=== PATIENT | female | born 1965 | race Caucasian/White ===

== ENCOUNTER 2022-07-29 07:04 | Outpatient (CLI) | payer BC, SELFPAY | END 2022-07-29 07:05 | disposition home or self-care (01) | PROVIDERS: PCP Family Medicine; Visit Provider Surgery | DX: Z12.11 Encounter for screening for malignant neoplasm of colon (principal); K62.1 Rectal polyp; K57.30 Diverticulosis of large intestine without perforation or abscess without bleeding; Z86.010 Personal history of colon polyps | CPT/HCPCS: 45385; 88305; 99153; J2250; J3010 ==

== ENCOUNTER 2022-08-23 07:19 | Outpatient (CLI) | payer BC, SELFPAY ==
[2022-08-23 10:10] LABS: Albumin* 4.2 g/dL (3.3-5.0)
[2022-08-23 10:11] LABS: Chloride* 107 mmol/L (96-114); Sodium* 140 mmol/L (135-149)
[2022-08-23 10:12] LABS: Potassium* 4.3 mmol/L (3.6-5.1)
[2022-08-23 10:13] LABS: Bilirubin Total* 0.5 mg/dL (0.1-1.5); Carbon Dioxide* 25 mmol/L (20-32); Cholesterol* 229 mg/dL (90-199); Creatinine* 0.6 mg/dL (0.5-1.5); Estimated Glomerular Filt Rate 105 ml/min
[2022-08-23 10:14] LABS: Alanine Aminotransferase* 55 U/L (4-35); Alkaline Phosphatase* 116 U/L (40-150); Aspartate Amino Transferase* 42 U/L (12-35); Blood Urea Nitrogen* 24 mg/dL (7-30); Calcium* 9.1 mg/dL (8.4-10.6); Glucose* 74 mg/dL (60-115); Total Protein* 7.5 g/dL (6.0-8.3); Triglycerides* 210 mg/dL (40-149)
[2022-08-23 10:15] LABS: HDL Cholesterol* 71 mg/dL (>=50); LDL Cholesterol Calculated 116 mg/dL (<100)
== END 2022-08-23 07:20 | disposition home or self-care (01) ==
LOC: NFLDREF 07:19
PROVIDERS: PCP Family Medicine; Visit Provider Family Medicine
DX: E66.9 Obesity, unspecified (principal); E78.5 Hyperlipidemia, unspecified; R53.83 Other fatigue
CPT/HCPCS: 80053; 80061

== ENCOUNTER 2023-09-25 13:27 | Outpatient (CLI) | payer OTHER, SELFPAY | END 2023-09-25 13:28 | disposition home or self-care (01) | PROVIDERS: PCP Family Medicine; Visit Provider Nurse Practitioner Family | DX: Z00.00 Encounter for general adult medical examination without abnormal findings (principal); R53.83 Other fatigue; R79.89 Other specified abnormal findings of blood chemistry; E78.5 Hyperlipidemia, unspecified; Z79.1 Long term (current) use of non-steroidal anti-inflammatories (NSAID); Z13.6 Encounter for screening for cardiovascular disorders | CPT/HCPCS: 80053; 80061 ==

== ENCOUNTER 2023-12-23 14:52 | Outpatient (CLI) | payer OTHER, SELFPAY ==
--- OUTSIDE RECORDS SUMMARY | 2023-12-23 14:54 | XMS_ITS | Clinical Summary ---
Author Organization [facility] Address [address] [address] Phone Care Team Providers Care Wrecking Mechanic Name Role Phone Unavailable Primary Care Provider Unavailabl e Allergies Active Allergy Reactions Criticality Noted Date Comments Cymbalta Nausea Only,Dizziness 03/16/2009 Severe Nausea Ibuprofen Other 03/16/2009 ulcers Morphine Sulfate 02/15/2003 Vomiting and shaking Nsaids 10/02/2000 She is able to use Aleve Sulfacetamide Sodium RASH 07/18/2006 Unclear Patient Report 06/16/2003 Certain antihistamines make her heart race. Vioxx Other 03/16/2009 Causes ulcers Medications Medication Sig Dispensed Refills Start Date End Date Status acetaminophen (TYLENOL) 500 MG tablet Acetaminophen should be limited to 4000 mg per day. As needed. 10/27/2012 Active famotidine (PEPCID) 20 MG tabletIndications: GERD (gastroesophageal reflux disease) Take 2 Tabs by mouth one time a day. 180 Tab 3 02/16/2013 Active Naproxen Sodium (ALEVE) 220 MG CAPS Take 220 mg by mouth as needed for Pain. Active lidocaine (LIDODERM) 5 % patchIndications:H ip pain, bilateral Place 1 Patch onto the skin every 24 hours. Remove patch(es) after 12 hours. 30 Patch 5 11/02/2013 Active Conj Estrogens-Bazedoxi fene (DUAVEE) 0.45-20 MG TABS Take by mouth one time a day. 01/11/2014 Active traZODone (DESYREL) 50 MG tabletIndications: Insomnia, unspecified Take 1 Tab by mouth at bedtime. 90 Tab 3 02/01/2014 Active metoclopramide (REGLAN) 10 MG tablet Take 1 tablet by mouth every eight hours as needed. 30 tablet 02/21/2014 Active clonazePAM (KLONOPIN) 0.5 MG tabletIndications: Anxiety,Insomnia, unspecified take 1 tablet by mouth every other night at bedtime 15 Tab 0 04/04/2014 Active lansoprazole (PREVACID) 30 MG delayed-release capusle Take 1 Cap by mouth one time a day. Administer before meals. Do not crush. 90 Cap 3 04/08/2014 Active hydroxychloroquine (PLAQUENIL) 200 MG tablet 2 tablets at bedtime. Take with food. 60 Tab 6 04/27/2014 Active predniSONE (DELTASONE) 10 MG tablet Take 4 tabs on day one, 3 tabs day 2, 2 tabs on day 3 and 1 tab on day 4.Take with food. 10 Tab 0 04/27/2014 Active Active Problems Problem Noted Date Diagnosed Date Ganglion cyst 12/28/2013 Anxiety 11/02/2013 Insomnia, unspecified 11/02/2013 Overview: Updated per 03/30/17 IMO import Hip pain, bilateral 11/02/2013 Benzodiazepine contract exists 11/02/2013 Overview: Contract signed 11/02/13. GERD (gastroesophageal reflux disease) 3 Gluteal tendinitis of left > right buttock 10/27 Fibromyalgia 09/23/2012 Leg cramps 03/16/2009 Family history of rheumatoid arthritis 9 Myalgia and myositis, unspecified 08/02/2008 Overview: IMO Update 04/09 Resolved Problems Problem Noted Date Diagnosed Date Resolved Date Femoral acetabular impingement - left 10/20/2012 10/27/2012 Encounter for long-term (cur rent) use of other medications - Agreement for Stimulant Medication Treatment - 10/15/2012 10/15/2012 11/02/2013 Overview: Agreement for Stimulant Medication Treatment Immunizations Name Administration Dates Next Due Tdap (7 years and older) 11/10/2012 Surgical History Surgery Date Site/Laterality Comments REPAIR INCISIONAL HERNIA,REDUCIBLE 07/18/2003 Right. [facility] APPENDECTOMY 04/17/2000 [facility] LIGATE FALLOPIAN TUBE 1992 LAP,DIAGNOSTIC ABDOMEN x 3 TOTAL ABDOM HYSTERECTOMY REMOVAL OF OVARIAN CYST(S) 1995 REPAIR INCISIONAL HERNIA,REDUCIBLE 02/17/2003 With mesh COLONOSCOPY 06/27/08 BREAST LUMPECTOMY Lt. Benign BREAST BIOPSY left benign COLONOSCOPY 06/07/2013 [facility] Dr Cerrato-- Medical History Medical History Date Comments Incisional hernia 07/18/2006 Right, small Abdominal pain, right lower quadrant 07/18/2006 Back spasm 06/16/2003 Recurrent. Abd x -rays Ruptured, appendix 02/04/2003 Adverse drug effect 02/04/[address] g ave her a lot of nausea. Ovarian cyst 02/15/2003 [facility] Back strain 05/25/2002 Chronic myofasci al back strain with spasm. Knee pain 12/29/2001 Right. Possible meniscal injury. X-rays done. Peritoneal abscess (HCC) 10/02/2000 Seconda ry to ruptured appendix, back in March 2000. Strain of lumbar region 10/02/2000 With rad icular symptoms. Flare of original injury. Work Comp. L-spine MRI 11/03/00. X-rays 10/02/00. Breast mass Fibrocystic breast Encounter for long-term (cur rent) use of other medications 10/15/2012 Agreement for Stimulant Medication Treatment Family History Medical History Relation Comments Kidney Disease Brother 3 Kidney failure Liver Disease Brother 4 Cirrhosis Addiction Father Functional alcoh olic Cancer Mother Hx of lung cance r Cardiovascular Disease Mother CAD Diabetes Mother Breast Cancer Negative Family Hx Relation Status Comments Brother 1 Liver and kidney failure secondary to alcoholism. Brother 2 Liver and kidney failure secondary to alcoholism. Brother 3 Brother 4 Father Mother Social History Tobacco Use Types Packs/Day Years Used Date Smoking Tobacco: Every Day Cigarettes 1 30 Smokeless Tobacco: Never Tobacco Cessation:Ready to Q uit: No Alcohol Use Standard Drinks/Week Comments Yes 0 (1 standard drink = 0.6 oz pur e alcohol) Occasional Sex and Gender Information Value Date Recorded Sex Assigned at Not on file Gender Identity Not on file Sexual Orientation Not on file Obstetrics History Last Filed Vital Signs Vital Sign Reading Time Taken Comments Blood Pressure 102/60 04/08/2014 2:47 PM CDT Pulse 62 04/08/2014 2:47 PM CDT Temperature 36.5 ??C (97.7 ??F) 04/08/2014 2:47 PM CD T Respiratory Rate 16 03/15/2014 8:58 AM CDT Oxygen Saturation 97% 03/15/2014 8:58 AM CDT Inhaled Oxygen Concentration - - Weight 65.5 kg (144 lb 4.8 oz) 04/08/2014 8:30 A M CDT Height 157.5 cm (5' 2) 03/15/2014 7:08 AM CDT Body Mass Index 26.39 03/15/2014 7:08 AM CDT Plan of Treatment Health Maintenance Due Date Last Done Comments CT Colonography 1965 Cervical Cancer Screening 1965 Cologuard 1965 FIT/FOBT 1965 Last pap w/ HPV Testing 1965 Last pap w/o HPV Testing 1965 Sigmoidoscopy 1965 Pneumococcal/PCV20 Vaccine: Pediatrics (2-5 yrs) and At-Risk Patients (6-64 yrs) (Standing Order) (1 of 2 - PCV) 1971 Hepatitis B Vaccine (Standin g Order) (1 of 3 - 19+ 3-dose series) 1984 MAMMO,SCREEN 06/08/2014 06/08/2013, 04/12/2011, 02/06/2010 Shingrix (Zoster recombinant ) vaccine (Standing Order) (1 of 2) 2015 TETANUS (Standing Order) 11/10/2022 11/10/2012 COVID-19 Vaccine ( - 2022-2 4 season) 2023 Influenza Vaccine Seasonal (Standing Order) (#1) 2023 Colonoscopy 06/07/2023 06/07/2013, 06/27/2008 Colorectal Cancer Screening 06/07/2023 PERTUSSIS (Standing Order) Completed 11/10/2012 HPV Vaccine (Standing Order) Aged Out No longer eligible based on patient's age to complete this topic Procedures Procedure Name Priority Date/Time Associated Diagnosis Comments MAMM DIGITAL SCREENING Routine 06/08/2013 1:48 PM PLANNING ASSISTANT Other sign and symptom in breast COLONOSCOPY Routine 06/07/2013 from Last 3 Months or Most Recently Relevant to Health Maintenance Results * MAMM DIGITAL SCREENING (06/08/2013 1:48 PM PLANNING ASSISTANT) Anatomical Region Laterality Modality Breast Bilateral Mammography 06/08/2013 1:33 PM PLANNING ASSISTANT Impressions 06/15/2013 8:49 AM PLANNING ASSISTANT ??Yearly mammography. BI-RADS 2: ??Benign findings Dictated: MD Johann Vences 16:10 Transcribed by: Rachel Denny 17:30 Narrative 06/15/2013 8:49 AM PLANNING ASSISTANT This document is currently in Final Status Exam MAMM DIGITAL SCREENING HISTORY: Screen. COMPARISON: Multiple priors. Computer Aided Detection System was utilized prior to interpretation. BREAST DENSITY: ??The breast tissue is heterogeneously dense. FINDINGS: ??Postsurgical changes related to benign left breast biopsy. Partial resolution of left breast architectural distortion. Scattered bilateral microcalcifications. ??Parenchymal pattern is denser on the right than the left. IMPRESSION: No suspicious findings. RECOMMENDATION: Yearly mammography. BI-RADS 2: ??Benign findings. ?? mkr Dictated: MD Johann Vences 16:10 Transcribed by: Rachel Denny 09:22 Signed: MD Johann Vences 08:40 Procedure Note Johann Vences MD - 06/15/2013 This document is currently in Final Status Exam MAMM DIGITAL SCREENING HISTORY: Screen. COMPARISON: Multiple priors. Computer Aided Detection System was utilized prior to interpretation. BREAST DENSITY: The breast tissue is heterogeneously dense. FINDINGS: Postsurgical changes related to benign left breast biopsy.Partial resolution of left breast architectural distortion. Scatteredbilateral microcalcifications. Parenchymal pattern is denser on the rightthan the left. IMPRESSION: No suspicious findings. RECOMMENDATION: Yearly mammography. BI-RADS 2: Benign findings. mkr Dictated: MD Johann Vences 16:10 Transcribed by: Rachel Denny 09:22 Signed: MD Johann Vences 08:40 IMPRESSION: Yearly mammography. BI-RADS 2: Benign findings Dictated: MD Johann Vences 16:10 Transcribed by: Rachel Denny 17:30 Nato Cerrato MD [facility] MAMMOGRAPHY ORDER MINE * COLONOSCOPY (06/07/2013) aNto Cerrato MD [facility] PROCEDURES from Last 3 Months or Most Recently Relevant to Health Maintenance [facility] 1965 [address] [address] [facility] 1965 [address] [place] [address]
--- OUTSIDE RECORDS SUMMARY | 2023-12-23 14:54 | XMS_ITS | Encounter Summary ---
Author Organization [facility] Address [address] [address] Phone Care Team Providers Care Windows Server Architect Name Role Phone Sonal Wood APRN, CNP Primary Care Provider Reason for Referral * Pain Center (Routine) - Exempt Specialty Diagnoses / Procedures Referred By Chey noland Referred To Contact Pain Management Diagnoses Chronic pain Tarun Germain MD [address] [place] [address] Referral ID Status Reason Start Date Expiration Date Visits Re quested Visits Authorized [id number] Exempt 02/08/2014 1 1 Question Answer Service Requested? Chronic Pain Services Comments Reason for Referral (If referral for Chronic Pain Consult Only - What question do you need answered? What help do you expect?): Chronic Pain/Fibromyalga Encounter Details Date Type Department Care Team (Late st Contact Info) Description 02/08/2014 Orders Only [facility] [address] [place] [address] Myrna Mcmanus Chronic pain (Primary Dx) Social History Tobacco Use Types Packs/Day Years Used Date Smoking Tobacco: Every Day Cigarettes 1 30 Smokeless Tobacco: Never Alcohol Use Standard Drinks/Week Comments Yes 0 (1 standard drink = 0.6 oz pur e alcohol) Occasional Sex and Gender Information Value Date Recorded Sex Assigned at Not on file Gender Identity Not on file Sexual Orientation Not on file documented as of this encounter Plan of Treatment Not on file documented as of this encounter Visit Diagnoses Diagnosis Chronic pain- Primary documented in this encounter Orders REFERRAL Count Last Ordered Date First Orde red Date APPT WITH PAIN CENTER 1 02/08/2014 documented in this encounter Care Teams Windows Server Architect Relationship Specialty Start Date End Date Sonal Wood, ELEVATOR STARTER, DIRECTOR OF OCCUPATIONAL THERAPY PCP - General Family Medicine 02/16/13 05/10/14 documented as of this encounter
--- OUTSIDE RECORDS SUMMARY | 2023-12-23 14:54 | XMS_ITS | Clinical Summary ---
Author Organization [facility] Address [place], [place] [address] Care Team Providers Care Anesthesiologist Physician Name Role Phone Tori Mehta MD Primary Care Provider + Allergies Active Allergy Reactions Criticality Noted Date Comments Morphine Vomiting 11/04/2017 Sulfa (Sulfonamide Antibiotics) Rash 01/2018 Medications Medication Sig Dispensed Refills Start Date End Date Status cyclobenzaprine (FLEXERIL) 10 mg tablet 09/03/2017 Active famotidine (PEPCID) 20 mg tablet Daily Active diclofenac 1 % topical (VOLTAREN) gel Apply to affected areas up to four times daily as needed. 04/05/2016 Active Encounters Date Type Department Care Team Description 09/25/2023 Lab Requisition [facility] [phone] Keyana Jules NP from Last 3 Months Social History Tobacco Use Types Packs/Day Years Used Date Smoking Tobacco: Never Smokeless Tobacco: Never Sex and Gender Information Value Date Recorded Sex Assigned at Not on file Gender Identity Not on file Sexual Orientation Not on file Obstetrics History Last Filed Vital Signs Vital Sign Reading Time Taken Comments Blood Pressure 103/70 11/04/2017 4:11 PM CDT Pulse 69 11/04/2017 4:11 PM CDT Temperature - - Respiratory Rate - - Oxygen Saturation 100% 11/04/2017 4:11 PM CDT Inhaled Oxygen Concentration - - Weight - - Height - - Body Mass Index - - Plan of Treatment Upcoming Encounters Date Type Department Care Team (Late st Contact Info) Description 01/21/2024 2:40 PM CDT Office Visit [facility] [address] [place] [address] Kaleb Carlos MD [address] [place] [address] Health Maintenance Due Date Last Done Comments Tdap 1976 Depression screening for age 12+ 1977 HIV for age 15-65 1980 BMI (ht and wt on same day) for age 18+ 1983 Hepatitis C screening for ag e 18-79 1983 Tetanus booster 1985 Colonoscopy through age 75 2010 Lipids for age 45-75 2010 Mammogram for age 45-75 2010 Zoster (shingles) series for age 50+ (1 of 2) 2015 COVID-19 vaccine series ( season) 2023 Influenza for age 50-64 02/29/2024 Pap test for age 21-65 09/24/2026 , 09/25/2023 Pneumococcal series for age 6-64 Aged Out No longer eligible b ased on patient's age to complete this topic Procedures Procedure Name Priority Date/Time Associated Diagnosis Comments LAB TRACKING EVENT Routine 09/25/2023 1: 35 PM CDT SEASONAL TAX PREPARER THIN PREP PAP SCREEN IMAGED Routine 09/25/2023 1:35 PM CDT HPV THIN PREP Routine 09/25/2023 1:35 PM CDT from Last 3 Months Results * LAB TRACKING EVENT (09/25/2023 1:35 PM CDT) Other (Other) Client Collect / Unknown 09/25/2023 1:35 PM CDT 09/25/2023 3:34 PM CDT Keyana Siddiqui AIRPORT SCREENER LAB BILL ONLY [facility] [address] [place] [address], * SEASONAL TAX PREPARER THIN PREP PAP SCREEN IMAGED (09/25/2023 1:35 PM CDT) Case Report Gynecologic Cytology Report ? Case: [id number] ? Authorizing Provider: ??Keyana Jules, AIRPORT SCREENER ?? Collected: ? 09/25/2023 1335 ? Ordering Location: ? [facility] ?Received: ?09/26/2023 1034 ? First Screen: ?Radha Vigil ? Rescreen: ?Tao Gardner ? Specimen: ?SEASONAL TAX PREPARER ThinPrep Vial Screening, Cervical/Vaginal ? 10/06/2023 9:45 AM CDT [facility] INTERPRETATION/ RESULT NEGATIVE FOR INTRAEPITHELIAL LESION OR MALIGNANCY (NIL) (none) 10/06/2023 9:45 AM T [facility]AL LABORATORY IMEN ADEQUACY Satisfactory for evaluation No endocervical component seen 10/06/2023 9:45 AM CDT [facility]AL LABORATORY HPV REQUEST HPV and PAP 10/06/2023 9:45 AM CDT [facility] Last Pap Result NIL 9:45 AM CDT [facility] Abnormal Pap or [place] Bx in last 5 years No 10/06/2023 9:45 AM CDT [facility] Menstrual Status Postmenopausal 10/06/2023 9:45 AM CDT [facility] [place] Bx Done Today No 10/06/2023 9:45 AM CDT [facility] Additional Information 10/06/2023 9:45 AM CDT [facility] Comment: Interpreted at [facility] [employer] [facility] - [address] [place] [id number] Automated Review Successful 10/06/2023 9:45 AM CDT [facility] Comment:Specimen processed s uccessfully by automated shipping and receiving associate device, ThinPrep Imaging System, [employer] ANCILLARY TESTING SEASONAL TAX PREPARER HPV Ordered, Please see separate report 10/06/2023 9:45 AM CDT [facility] Note The pap test is a screening technique, not a diagnostic procedure. It is used primarily to screen for squamous cancers and precursor lesions. Published studies have shown that it is subject to both false negative and false positive results. The pap test should not be used as the sole means to diagnose or exclude pre-malignant and malignant lesions. 10/06/2023 9:45 AM CDT [facility] Other (Cervical/Vagina l) 09/25/2023 1:35 PM CDT 09/26/2023 10:34 AM CDT Keyana Siddiqui NP PATHOLOGY/CYTOLOG Y [facility] [address] [place] [address], * HPV HIGH RISK (09/25/2023 1:35 PM CDT) TYPE 16 Negative Negative 09/29/2023 5:12 PM CDT [facility] LABORAT[facility] TYPE 18 Negative Negative 09/29/2023 5:12 PM CDT [facility] TR[facility] LAB[facility] OTHER HIGH RISK TYPES Negative Negative 09/29/2023 5:12 PM CDT [facility] Other (Cervical/Vagina l) 09/25/2023 1:35 PM CDT 09/26/2023 10:34 AM CDT Narrative [facility] - 09/29/2023 5:12 PM CDT HPV types 16, 18, 31, 33, 35, 39, 45, 51, 52, 56, 58, 59, 66 and 68 DNA were undetectable or below the pre-set threshold. Methodology: Christina Randy 4800 HPV Test Keyana Siddiqui AIRPORT SCREENER MICROBIOLOGY [facility] [address] [place] [address], from Last 3 Months Care Teams Anesthesiologist Physician Relationship Specialty Start Date End Date Tori Mehta MD [address] [place] [address] PCP - General Family Practice 10/09/17
--- OUTSIDE RECORDS SUMMARY | 2023-12-23 14:54 | XMS_ITS | Clinical Summary ---
Author Organization [facility] Address [address] [address] Care Team Providers Care Cereal Supervisor Name Role Phone Tori Mehta MD Primary Care Provider Source Comments You are receiving this document as you are listed as the primary care provider,follow-up provider, or the patient has been referred to you for consultation.This is in compliance with the Medicare andSum[facility] Health [facility] Campuscaid EHR Incentive Program,which states Providers who transition their patient to another setting of careor provider of care or refers their patient to another provider of care shouldprovide summary care record for each transition of care or referral. [email or web address] St. Vincent Physicians Medical CenterSnatch that Jerky Allergies Active Allergy Reactions Criticality Noted Date Comments Bupropion Unknown High 08/11/2020 Citalopram Unknown High 08/11/2020 Gabapentin Gastrointestinal Low 08/11/2020 Morphine Gastrointestinal 11/04/2017 Nickel Unknown Low 08/11/2020 Paroxetine Unknown High 08/11/2020 Sulfa Antibiotics Rash High 08/11/2020 Medications Medication Sig Dispensed Refills Start Date End Date Status lidocaine-prilocaine (EMLA) 2.5-2.5 % cream Apply to affected areas up to four times daily as needed. 30 g 3 04/05/2016 Active diclofenac (VOLTAREN) 1 % gel Apply to affected areas up to four times daily as needed. 100 g 3 04/05/2016 Active cyclobenzaprine (FLEXERIL) 10 MG tablet Take 10 mg by mouth two times daily as needed. 01/31/2021 Active famotidine (PEPCID) 20 MG tablet Take 20 mg by mouth two times a day. Active Active Problems Problem Noted Date Diagnosed Date Abnormal biliary HIDA scan 03/01/2021 Anxiety 03/01/2021 Elevated liver function tests 03/01/2021 Fatigue 03/01/2021 Gastroesophageal reflux disease 03/01/2021 History of hysterectomy for benign disease 03/01 History of neck pain 03/01/2021 Severe anxiety 03/01/2021 Severe depression 03/01/2021 Status post appendectomy 03/01/2021 Fibromyalgia 05/01/2016 Primary osteoarthritis involving multiple joints 04/05/2016 Multiple joint pain 04/05/2016 Immunizations Name Administration Dates Next Due Tdap 11/10/2012 Social History Tobacco Use Types Packs/Day Years Used Date Smoking Tobacco: Former Cigarettes Q uit: 06/30/2015 Smokeless Tobacco: Never Sex and Gender Information Value Date Recorded Sex Assigned at Not on file Gender Identity Not on file Sexual Orientation Not on file Plan of Treatment Health Maintenance Due Date Last Done Comments Cervical Cancer Screening Due 1965 Colon Cancer Screening Plan Due 1965 Mammogram 1965 Adult Preventive Visit 1983 HepB (1) 1984 Cholesterol 2010 Zoster/Shingles (1 of 2) 2015 DTaP/Tdap/Td (2 - Tdap) 11/10/2022 11/10/2012 COVID-19 Vaccine (1 - 2022-2 4 season) 2023 Influenza (Season Ended) 2024 HIV Screening (Preventive Services) Completed 04/05/2016 Hep C Screening (Preventive Services) Completed 04/05/2016 HepA Aged Out No longer eligi ble based on patient's age to complete this topic Hib Aged Out No longer eligi ble based on patient's age to complete this topic IPV (Polio) Aged Out No longer eligi ble based on patient's age to complete this topic MCV4 Aged Out No longer eligi ble based on patient's age to complete this topic Pneumococcal Aged Out No longer eligi ble based on patient's age to complete this topic Procedures Procedure Name Priority Date/Time Associated Diagnosis Comments HIV-1 P24 AND HIV-1/HIV-2 ANTIBODIES Routine 04/05/2016 3:02 PM CDT Multiple joint pain HEPATITIS C ANTIBODY, WITH REFLEX Routine 04/05/2016 3:02 PM CDT Multiple joint pain from Last 3 Months or Most Recently Relevant to Health Maintenance Results * LAB HIV-1 p24 AND HIV-1/HIV-2 ANTIBODIES (04/05/2016 3:02 PM CDT) HIV-1 p24 Ag and HIV-1/HIV-2 Ab Nonreactive Nonreactive PN SOFT 04/05/2016 3:02 PM CDT 04/05/2016 6:33 PM CDT Narrative PN SOFT - 04/05/2016 7:32 PM CDT Performed at [facility], [address] [place] [id number] CLIA number [id number] Sherlyn Mccord MD LAB_1 Performing Organization Address [facility] Co de Phone Number [employer] [address] [place] [address] * HCAB - Hepatitis C Virus Nidhi with Reflex In-House (04/05/2016 3:02 PM CDT) Hepatitis C Antibody Nonreactive Nonreactive PN SOFT 04/05/2016 3:02 PM CDT 04/05/2016 6:33 PM CDT Narrative PN SOFT - 04/05/2016 7:32 PM CDT Performed at [facility], [address] [place] [id number] CLIA number [id number] Sherlyn Mccord MD LAB_1 Performing Organization Address City/[facility] Co de Phone Number [employer] [address] [place] [address] from Last 3 Months or Most Recently Relevant to Health Maintenance Care Teams Cereal Supervisor Relationship Specialty Start Date End Date Tori Mehta MD [address] [place] [address] PCP - General Family Practice 02/29/16
--- OUTSIDE RECORDS SUMMARY | 2023-12-23 14:54 | XMS_ITS | Encounter Summary ---
Author Organization [facility] Address [address] [address] Phone Care Team Providers Care Supervisor Incising Name Role Phone Cherri Hardy PA-C Primary Care Provider + [phone] Cherri Hardy Primary Care Provider [phone] Elsewhere, Pcp Primary Care Provider Unavailji e Elsewhere, Pcp Primary Care Provider UnavailAngela Matute PA-C Primary Care Provider Sonal Wood APRN, FIELD MECHANIC Primary Care Provider Encounter Details Date Type Department Care Team (Late st Contact Info) Description 06/16/2003 OFFICE NOTE [facility] FAMILY MEDICINE [address] [place], [place] [address] Cherri Hardy [address] [address] Social History Tobacco Use Types Packs/Day Years Used Date Smoking Tobacco: Never Assessed Sex and Gender Information Value Date Recorded Sex Assigned at Not on file Gender Identity Not on file Sexual Orientation Not on file documented as of this encounter Progress Notes * Cherri Hardy - 07/06/2003 3:04 PM [facility] HISTORY AND TREATMENT RECORD SYDNEE GALAN 1965 06/16/2003 [place]# [place]- -[facility]# Page 1 of 1 Cherri Hardy RN, PAQuinton [facility] SUBJECTIVE: Sydnee is here with a couple of issues. One she needs a refill on her Valium. She is finding that the Flexeril does not seem to help her back. She got 30 Valium in January and today is her first refill from that. She states that she rarely uses it but when she does get back spasms it really prevents her from being completely debilitated. She has been doing daily exercises. Secondly, she is having a lot of fullness and pain along her incisional line where she had her appendectomy. She states that she has a strong family history for multiple hernias and has had a hernia repair in the past. She feels a bulge when she stands up. This happened after she was straining with a bowel movement. CURRENT MEDICATIONS: - Valium 5 p.r.n. maybe uses 10 per month. - Aspirin. - Aleve. - Zantac. ALLERGIES: SULFA AND CERTAIN ANTIHISTAMINES MAKE HER HEART RACE. OBJECTIVE: BP 94/70. Pulse 80. Skin is pink, warm and dry. Palpation on the abdominal upright reveals an definite bulge palpable along the incisional line. Back is showing good movement today. ASSESSMENT: - Recurrent back spasms. - Incisional hernia. PLAN: - Patient is going to be refilled on the Valium #30. I would expect that this would last at least three months. As far as her hernia goes, she is going to see Dr. Rinaldi 07/20/2003 at 9:00 a.m./[facility] cc: xc: P 3:04 P/mh1/bs(dos)* UDN: [id number] JOB#: [id number] documented in this encounter Plan of Treatment Not on file documented as of this encounter Visit Diagnoses Not on filedocumented in this encounter Care Teams Supervisor Incising Relationship Specialty Start Date End Date Cherri Hardy PA-C PCP - General 06/16/08 03/15/09 Cherri Hardy [address] [place] [address] PCP - General 09/10/01 06/15/08 Elsewhere, Pcp PCP - General 01/02/12 05/04/12 Elsewhere, Pcp PCP - General 09/23/12 11/01/12 Angela Orellana PA-C [address] [place] [address] PCP - General Physician Java Software Developer 11/02/12 02/15/13 Sonal Wood APRN, FIELD MECHANIC [address] [place] [address] PCP - General Family Medicine 02/16/13 05/10/14 documented as of this encounter
--- NOTE | 2023-12-23 15:20 | CRLHL7_ITS ---
For Patients: As a result of the Century Cures Act, medical imaging exams and procedure reports are released immediately into your electronic medical record. You may view this report before your referring provider. If you have questions, please contact your health care provider. BILATERAL SCREENING MAMMOGRAM WITH COMPUTER-AIDED DETECTION AND TOMOSYNTHESIS TECHNIQUE: CC and MLO views were obtained. These mammographic images have been obtained using full-field digital technique. These mammographic images were interpreted with the benefit of computer-aided detection. Breast Tomosynthesis was used in this interpretation. COMPARISON FILM: 08/14/21, 01/14/19, 12/19/15. FINDINGS: There are scattered areas of fibroglandular density. IMPRESSION: There is no radiographic evidence for malignancy. ASSESSMENT: BI-RADS Category 2: Benign RECOMMENDATION: Routine screening mammogram in 1 year. A lay language report of this examination will be provided to the patient. Blue Roberts M.D. Diagnostic Radiologist [facility] [email or web address] SP/Dictated by: Blue Roberts MD @ 12/30/2023 10:53:00 AM (Electronically Signed)
== END 2023-12-23 14:53 | disposition home or self-care (01) ==
LOC: MAMMO 14:52
PROVIDERS: PCP Family Medicine; Visit Provider Nurse Practitioner Family
DX: Z12.31 Encounter for screening mammogram for malignant neoplasm of breast (principal)
CPT/HCPCS: 77063; 77067

== ENCOUNTER 2024-02-24 09:27 | Outpatient (CLI) | payer OTHER, SELFPAY ==
--- OUTSIDE RECORDS SUMMARY | 2024-02-24 09:29 | XMS_ITS | Clinical Summary ---
Author Organization [facility] Address [place], [place] [address] Care Team Providers Care Supervisor Hard Candy Name Role Phone Tori Mehta MD Primary Care Provider + Allergies Active Allergy Reactions Criticality Noted Date Comments Bupropion *Unknown - Follow up needed High 08/11/2020 Citalopram *Unknown - Follow up needed High 08/11/2020 Duloxetine Dizziness,Nausea Only 03/16/2009 Severe Nausea Gabapentin GI Upset Low 08/11/2020 Morphine Vomiting,Stomach Upset 02/15/2003 Vomiting and shaking Nickel *Unknown - Follow up needed Low 08/11/2020 Paroxetine *Unknown - Follow up needed High 08/11/2020 Rofecoxib Other - Describe In Comment Field 03/16/2009 Causes ulcers Sulfa (Sulfonamide Antibiotics) Rash High 11/04/2017 Medications Medication Sig Dispensed Refills Start Date End Date Status cyclobenzaprine (FLEXERIL) 10 mg tablet 09/03/2017 Active famotidine (PEPCID) 20 mg tablet Daily Active traMADoL (ULTRAM) 50 mg tablet 12/29/2023 Active naproxen sodium 220 mg cap Take 220 mg by mouth. Active predniSONE (DELTASONE) 10 mg tabletIndications:Zahraa mbar radiculopathy Take additional 10mg oral daily as directed. 6 Tablet 01/22/2024 Active predniSONE (DELTASONE) 10 mg tabletIndications:Zahraa mbar radiculopathy Take 2 Tablets (20 mg) by mouth once daily with a meal for 3 days, THEN 1 Tablet (10 mg) three times daily with meals for 3 days, THEN 2 Tablets (20 mg) once daily with a meal for 3 days, THEN 1 Tablet (10 mg) once daily with a meal for 3 days. 24 Tablet 01/21/2024 02/02/2024 Active Problems No known active problems Encounters Date Type Department Care Team Description 02/09/2024 Telephone [facility] [address] [place] [address] Kaleb Carlos MD Questions 02/04/2024 Medical Messaging [facility] [address] [place] [address] Kaleb Carlos MD Follow Up after Steroids 01/21/2024 4:15 PM CDT Ancillary Procedure [facility] [address] [place] [address] 01/21/2024 2:40 PM CDT Office Visit [facility] [address] [place] [address] Kaleb Carlos MD Musculoskeletal Problem (Consult sacrum pain with bilateral radiculopathy per her P T) 01/21/2024 Travel 12/15/2023 Orders Only [facility] Scanner 1 scan: (1-Ord) RAYUS, MR LUMBAR SPINE WO CON, 12/15/2023 from Last 3 Months Social History Tobacco Use Types Packs/Day Years Used Date Smoking Tobacco: Former Cigarettes Smokeless Tobacco: Never Tobacco Cessation:Counseling Given: Not Answered Social Connections Answer Date Recorded Frequency of Communication with Friends and Fami ly Not on file 01/21/2024 Sex and Gender Information Value Date Recorded Sex Assigned at Not on file Gender Identity Not on file Sexual Orientation Not on file Obstetrics History Last Filed Vital Signs Vital Sign Reading Time Taken Comments Blood Pressure 135/77 01/21/2024 2:47 PM CDT Pulse 70 01/21/2024 2:47 PM CDT Temperature 36.7 ??C (98 ??F) 01/21/2024 2:47 PM CDT Respiratory Rate - - Oxygen Saturation 97% 01/21/2024 2:47 PM CDT Inhaled Oxygen Concentration - - Weight - - Height - - Body Mass Index - - Plan of Treatment Upcoming Encounters Date Type Department Care Team (Late st Contact Info) Description 02/24/2024 10:20 AM CDT Office Visit [facility] [address] [place] [address] Kaleb Carlos MD [address] [place] [address] Arrived Health Maintenance Due Date Last Done Comments [...] of 2) 2015 COVID-19 vaccine series ( - season) 2023 Influenza for age 50-64 02/29/2024 Pap test for age 21-65 09/24/2026 , 09/25/2023 Pneumococcal series for age 6-64 Aged Out No longer eligible b ased on patient's age to complete this topic Procedures Procedure Name Priority Date/Time Associated Diagnosis Comments AMB EPIDURAL STEROID INJECTION Routine 02/24/2024 8:09 AM CDT Lumbar radiculopathy Annular tear of lumbar disc DDD (degenerative disc disease), lumbar Lumbar facet arthropathy XR SPINE LUMBAR 2 VIEWS FLEXION EXTENSION Routine 01/21/2024 4:16 PM CDT DDD (degenerative disc disease), lumbar Lumbar facet arthropathy Lumbar radiculopathy SCAN-MRI INTERPRETATION 12/15/2023 12:00 AM CDT HPV THIN PREP Routine 09/25/2023 1:35 PM CDT from Last 3 Months or Most Recently Relevant to Health Maintenance Results * XR SPINE LUMBAR 2 VIEWS FLEXION EXTENSION (01/21/2024 4:16 PM CDT) Anatomical Region Laterality Modality Spine, LUMBAR SPINE Computed Rad iography 01/22/2024 3:26 PM CDT Impressions 01/22/2024 3:26 PM CDT 2 millimeters of motion noted with flexion/extension at L3-4. No vertebral body compression fracture. Discogenic spurring L4-5. Facet degeneration L5-S1 and L4- 5. Dictated by Blue Roberts MD @ 01/22/2024 3:26:53 PM (Electronically Signed) Narrative 01/22/2024 3:26 PM CDT For Patients: ??As a result of the Cures Act, medical imaging exams and procedure reports are released immediately into your electronic medical record. ??You may view this report before your referring provider. ??If you have questions, please contact your health care provider. Indication: Lumbar radiculopathy Technique: Lumbar spine 2 view, including lateral flexion/extension Procedure Note Blue Roberts MD - 01/22/2024 For Patients: As a result of the Cures Act, medical imagingexams and procedure reports are released immediately into your electronicmedical record. You may view this report before your referring provider.If you have questions, please contact your health care provider. Indication: Lumbar radiculopathy Technique: Lumbar spine 2 view, including lateral flexion/extension IMPRESSION: 2 millimeters of motion noted with flexion/extension at L3-4. No vertebralbody compression fracture. Discogenic spurring L4-5. Facet degenerationL5-S1 and L4- 5. Dictated by Blue Roberts MD @ 01/22/2024 3:26:53 PM (Electronically Signed) Kaleb Carlos MD GENERAL IMAGING * SCAN-MRI INTERPRETATION (12/15/2023 12:00 AM CDT) Anatomical Region Laterality Modality Other Scanner OTHER * HPV HIGH RISK (09/25/2023 1:35 PM CDT) TYPE 16 Negative Negative 09/29/2023 5:12 PM CDT [facility] [employer] TYPE 18 Negative Negative 09/29/2023 5:12 PM [address] [facility] [employer] OTHER HIGH RISK TYPES Negative Negative 09/29/2023 5:12 PM CD[address] [facility] Other (Cervical/Vagina l) 09/25/2023 1:35 PM CDT 09/26/2023 10:34 AM CDT Narrative [facility] - 09/29/2023 5:12 PM CDT HPV types 16, 18, 31, 33, 35, 39, 45, 51, 52, 56, 58, 59, 66 and 68 DNA were undetectable or below the pre-set threshold. Methodology: Christina Randy 4800 HPV Test Keyana Siddiqui [facility] [address] [place] [address], from Last 3 Months or Most Recently Relevant to Health Maintenance Care Teams Supervisor Hard Candy Relationship Specialty Start Date End Date Tori Mehta MD [address] [place] [address] PCP - General Family Practice 10/09/17
--- OUTSIDE RECORDS SUMMARY | 2024-02-24 09:29 | XMS_ITS | Encounter Summary ---
Author Organization [facility] Address [address] [address] Phone Care Team Providers Care Digital Media Director Name Role Phone Sonal Wood APRN, CNP Primary Care Provider Reason for Referral * Pain Center (Routine) - Exempt Specialty Diagnoses / Procedures Referred By Chey noland Referred To Contact Pain Management Diagnoses Chronic pain Tarun Germain MD [address] [place] [address] Referral ID Status Reason Start Date Expiration Date Visits Re quested Visits Authorized [id number] Exempt 02/08/2014 1 1 Question Answer Service Requested? Chronic Pain Services Comments Reason for Referral (If referral for Chronic Pain Consult Only - What question do you need answered? What help do you expect?): Chronic Pain/Fibromyalga Encounter Details Date Type Department Care Team (Late st Contact Info) Description 02/08/2014 Orders Only [facility] ORTHOPEDICS SURGICAL [address] [place] [address] Myrna Mcmanus Chronic pain (Primary [...] 02/08/2014 documented in this encounter Care Teams Digital Media Director Relationship Specialty Start Date End Date Sonal Wood, DRYWALL HANGER FRAMER, PLYCOR OPERATOR PCP - General Family Medicine 02/16/13 05/10/14 documented as of this encounter
--- OUTSIDE RECORDS SUMMARY | 2024-02-24 09:29 | XMS_ITS | Clinical Summary ---
Author Organization [facility] Address [address], [place] [address] Care Team Providers Care Biller Name Role Phone Tori Mehta MD Primary Care Provider Source Comments You are receiving this document as you are listed as the primary care provider,follow-up provider, or the patient has been referred to you for consultation.This is in compliance with the Medicare andTrumbull Memorial Hospitalcaid EHR Incentive Program,which states Providers who transition their patient to another setting of careor provider of care or refers their patient to another provider of care shouldprovide summary care record for each transition of care or referral. [email or web address] Allergies Active Allergy Reactions Criticality Noted Date [...] (1 - 2022-2 4 season) 2023 Influenza (#1) 2024 HIV Screening (Preventive Services) Completed 04/05/2016 [...] - 04/05/2016 7:32 PM CDT Performed at [facility], [address] [place] [address] CLIA number [id number] Sherlyn Mccord MD LAB_1 Performing Organization Address [facility] Co de Phone Number PN [employer] [address] [place] [address] * HCAB - Hepatitis C Virus Nidhi with Reflex In-House (04/05/2016 3:02 PM CDT) Hepatitis C Antibody Nonreactive Nonreactive PN SOFT 04/05/2016 3:02 PM CDT 04/05/2016 6:33 PM CDT Narrative PN SOFT - 04/05/2016 7:32 PM CDT Performed at [facility], [address] [place] [address] CLIA number [id number] Sherlyn Mccord MD LAB_1 Performing Organization Address City/[facility] Co de Phone Number PN [employer] [address] [place] [address] from Last 3 Months or Most Recently Relevant to Health Maintenance Care Teams Biller Relationship Specialty Start Date End Date Tori Mehta MD [address] [place] [address] PCP - General Family Practice 02/29/16
--- OUTSIDE RECORDS SUMMARY | 2024-02-24 09:29 | XMS_ITS | Clinical Summary ---
Author Organization [facility] Address [address] [address] Phone Care Team Providers Care Crew Leader Gluing Name Role Phone Unavailable Primary Care Provider [...] Site/Laterality Comments REPAIR INCISIONAL HERNIA,REDUCIBLE 07/18/2003 Right. [facility] APPENDECTOMY 04/17/2000 [facility] LIGATE FALLOPIAN TUBE 1992 LAP,DIAGNOSTIC ABDOMEN x 3 TOTAL ABDOM HYSTERECTOMY REMOVAL OF OVARIAN CYST(S) 1995 REPAIR INCISIONAL HERNIA,REDUCIBLE 02/17/2003 With mesh COLONOSCOPY 06/27/08 BREAST LUMPECTOMY Lt. Benign BREAST BIOPSY left benign COLONOSCOPY 06/07/[address] [facility] [address] Cerrato-- Medical History Medical History [...] 2) 2015 TETANUS (Standing Order) 11/10/2022 11/10/2012 Colonoscopy 06/07/2023 06/07/2013, 06/27/2008 Colorectal Cancer Screening 06/07/2023 Influenza Vaccine Seasonal (Standing Order) (#1) 2024 PERTUSSIS (Standing Order) Completed 11/10/2012 HPV Vaccine (Standing Order) Aged Out No longer eligible based on patient's age to complete this topic Procedures Procedure Name Priority Date/Time Associated Diagnosis Comments MAMM DIGITAL SCREENING Routine 06/08/2013 1:48 PM CADD INSTRUCTOR Other sign and symptom in breast COLONOSCOPY Routine 06/07/2013 from Last 3 Months or Most Recently Relevant to Health Maintenance Results * MAMM DIGITAL SCREENING (06/08/2013 1:48 PM CADD INSTRUCTOR) Anatomical Region Laterality Modality Breast Bilateral Mammography 06/08/2013 1:33 PM CADD INSTRUCTOR Impressions 06/15/2013 8:49 AM CADD INSTRUCTOR ??Yearly mammography. BI-RADS 2: ??Benign findings Dictated: MD Johann Vences 16:10 Transcribed by: Rachel Denny 17:30 Narrative 06/15/2013 8:49 AM CADD INSTRUCTOR This document is currently in Final Status [...] EC MAMMOGRAPHY ORDER MINE * COLONOSCOPY (06/07/2013) Nato Cerrato MD EC PROCEDURES from Last 3 Months or Most Recently Relevant to Health Maintenance ANNIE GALAN [facility] Self 1965 [address] [place] [address] ANNIE GALAN [facility] Self 1965 [address] [place] [address]
--- OUTSIDE RECORDS SUMMARY | 2024-02-24 09:29 | XMS_ITS | Encounter Summary ---
Author Organization [facility] Address [address] [address] Phone Care Team Providers Care Fabrication Supervisor Name Role Phone Cherri Hardy PA-C Primary Care Provider + [phone] Cherri Hardy Primary Care Provider [phone] Elsewhere, Pcp Primary Care Provider Unavailji e Elsewhere, Pcp Primary Care Provider UnavailAngela Matute PA-C Primary Care Provider [phone] Sonal Wood APRN, STAVE LOG CUT OFF SAW OPERATOR Primary Care Provider Encounter Details Date Type Department Care Team (Late st Contact Info) Description 06/16/2003 OFFICE NOTE [facility] FAMILY MEDICINE [address] [place], [place] [address] Cherri Hardy [address] [address] Social History Tobacco Use Types Packs/Day Years Used Date Smoking Tobacco: Never Assessed Sex and Gender Information Value Date Recorded Sex Assigned at Not on file Gender Identity Not on file Sexual Orientation Not on file documented as of this encounter Progress Notes * Cherri Hardy - 07/06/2003 3:04 PM [facility] HISTORY AND TREATMENT RECORD SYDNEE GALAN 1965 06/16/2003 [place]# [place] [facility]# Page 1 of 1 Cherri Hardy RN, PAQuinton [facility] SUBJECTIVE: Sydnee is here with [...] to see Dr. Rinaldi 07/20/2003 at 9:00 a.m./[facility] cc: xc: P 3:04 P/mh1/bs(dos)* UDN: [id number] JOB#: [id number] documented in this encounter Plan of Treatment Not on file documented as of this encounter Visit Diagnoses Not on filedocumented in this encounter Care Teams Fabrication Supervisor Relationship Specialty Start Date End Date Cherri Hardy PA-C PCP - General 06/16/08 03/15/09 Cherri Hardy [address] [place] [address] PCP - General 09/10/01 06/15/08 Elsewhere, Pcp PCP - General 01/02/12 05/04/12 Elsewhere, Pcp PCP - General 09/23/12 11/01/12 Angela Orellana PA-C [address] [place] [address] PCP - General Physician Import/Export Administrator 11/02/12 02/15/13 Sonal Wood APRN, STAVE LOG CUT OFF SAW OPERATOR [address] [place] [address] PCP - General Family Medicine 02/16/13 05/10/14 documented as of this encounter
== END 2024-02-24 09:28 | disposition home or self-care (01) ==
LOC: INJ CL 09:28
PROVIDERS: PCP Nurse Practitioner Family; Visit Provider Family Medicine
DX: M54.16 Radiculopathy, lumbar region (principal); M51.36 Other intervertebral disc degeneration, lumbar region
CPT/HCPCS: 62323; J0702; Q9966

== ENCOUNTER 2024-05-21 07:49 | Outpatient (CLI) | payer OTHER, SELFPAY ==
--- OUTSIDE RECORDS SUMMARY | 2024-05-21 07:51 | XMS_ITS | Clinical Summary ---
Author Organization [facility] Address [address], [place] [address] Care Team Providers Care Manager Community Outreach Name Role Phone Tori Mehta MD Primary Care Provider Source Comments You are receiving this document as you are listed as the primary care provider,follow-up provider, or the patient has been referred to you for consultation.This is in compliance with the Medicare andHolmes County Joel Pomerene Memorial Hospitalcaid EHR Incentive Program,which states Providers who transition their patient to another setting of careor provider of care or refers their patient to another provider of care shouldprovide summary care record for each transition of care or referral. [facility] Allergies Active Allergy Reactions Criticality Noted Date [...] Tdap) 11/10/2022 11/10/2012 COVID-19 Vaccine (1 - 2023-2 5 season) 2024 Influenza (#1) 2024 HIV Screening (Preventive Services) Completed 04/05/2016 Hep C Screening (Preventive Services) Completed 04/05/2016 HepA Aged Out No longer eligi ble based on patient's age to complete this topic Hib Aged Out No longer eligi ble based on patient's age to complete this topic IPV (Polio) Aged Out No longer eligi ble based on patient's age to complete this topic RSV Aged Out No longer eligi ble based [...] - 04/05/2016 7:32 PM CDT Performed at [address] [address] CLIA number [id number] Sherlyn Mccord MD LAB_1 Performing Organization Address [facility] Co de Phone Number [phone] [address] [place] [address] * HCAB - Hepatitis C Virus Nidhi with Reflex In-House (04/05/2016 3:02 PM CDT) Hepatitis C Antibody Nonreactive Nonreactive PN SOFT 04/05/2016 3:02 PM CDT 04/05/2016 6:33 PM CDT Narrative PN SOFT - 04/05/2016 7:32 PM CDT Performed at [facility], [address] [place] [address] CLIA number [id number] Sherlyn Mccord MD LAB_1 Performing Organization Address City/[facility] Co de Phone Number [employer] [address] [place] [address] from Last 3 Months or Most Recently Relevant to Health Maintenance Care Teams Manager Community Outreach Relationship Specialty Start Date End Date Tori Mehta MD [address] [place] [address] PCP - General Family Practice 02/29/16
--- OUTSIDE RECORDS SUMMARY | 2024-05-21 07:51 | XMS_ITS | Clinical Summary ---
Author Organization [facility] Address [place], [place] [address] Care Team Providers Care Mason Foreman/Superintendant Name Role Phone Tori Mehta MD Primary [...] by mouth. Active predniSONE (DELTASONE) 10 mg tabletIndications:Lum bar radiculopathy Take additional 10mg oral daily as directed. 6 Tablet 01/22/2024 Active Active Problems No known active problems Encounters Date Type Department Care Team Description 05/20/2024 Travel 04/14/2024 Medical Messaging [facility] [address] [place] [address] Kaleb Carlos MD Follow up symptoms 02/24/2024 10:20 AM CDT Office Visit [facility] [address] [place] [address] Kaleb aCrlos MD Procedure (L4-5 ILESI) from Last 3 Months Social History Tobacco Use Types Packs/Day Years Used Date Smoking Tobacco: Former Cigarettes Smokeless Tobacco: Never Tobacco Cessation:Counseling Given: Not Answered Sex and Gender Information Value Date Recorded Sex Assigned at Not on file Gender Identity Not on file Sexual Orientation Not on file Obstetrics History Last Filed Vital Signs Vital Sign Reading Time Taken Comments Blood Pressure 135/77 01/21/2024 2:47 PM CDT Pulse 70 01/21/2024 2:47 PM CDT Temperature 36.7 C (98 F) 01/21/2024 2:47 PM CDT Respiratory Rate - - Oxygen Saturation 97% 01/21/2024 2:47 PM CDT Inhaled Oxygen Concentration - - Weight - - Height - - Body Mass Index - - Plan of Treatment Upcoming Encounters Date Type Department Care Team (Late st Contact Info) Description 05/21/2024 8:20 AM FISHING BOAT CAPTAIN Office Visit [facility] [address] [place] [address] Kaleb Carlos MD [address] [place] [id number] Health Maintenance Due Date Last Done Comments [...] (1 of 2) 2015 COVID-19 vaccine series (2023- season) 2024 Influenza for age 50-64 02/29/2024 Pap test for age 21-65 09/24/2026 , 09/25/2023 Pneumococcal series for age 6-64 Aged Out No longer eligible b ased on patient's age to complete this topic Procedures Procedure Name Priority Date/Time Associated Diagnosis Comments AMB EPIDURAL STEROID INJECTION Routine 02/24/2024 12:00 AM CDT Lumbar radiculopathy Annular tear of lumbar disc DDD (degenerative disc disease), lumbar Lumbar facet arthropathy HPV HIGH RISK Routine 09/25/2023 1:35 PM CDT from Last 3 Months or Most Recently Relevant to Health Maintenance Results * AMB EPIDURAL STEROID INJECTION (02/24/2024 12:00 AM CDT) Kaleb Carlos MD NEUROLOGY ORD * HPV HIGH RISK (09/25/2023 1:35 PM CDT) TYPE 16 Negative Negative 09/29/2023 5:12 PM CDT [facility] TYPE 18 Negative Negative 09/29/2023 5:12 PM CDT [facility] OTHER HIGH RISK TYPES Negative Negative 09/29/2023 5:12 PM CDT [facility] Other (Cervical/Vagina l) 09/25/2023 1:35 PM CDT 09/26/2023 10:34 AM CDT Narrative [facility] - 09/29/2023 5:12 PM CDT HPV types 16, 18, 31, 33, 35, 39, 45, 51, 52, 56, 58, 59, 66 and 68 DNA were undetectable or below the pre-set threshold. Methodology: Christina Randy 4800 HPV Test Keyana Siddiqui NP MICROBIOLOGY [facility] [address] [place] [address], from Last 3 Months or Most Recently Relevant to Health Maintenance Care Teams Mason Foreman/Superintendant Relationship Specialty Start Date End Date Tori Mehta MD [address] [place] [address] PCP - General Family Practice 10/09/17
--- OUTSIDE RECORDS SUMMARY | 2024-05-21 07:51 | XMS_ITS | Clinical Summary ---
Author Organization [facility] Address [address] [address] Phone Care Team Providers Care Insurance Account Specialist Name Role Phone Unavailable Primary Care Provider Unavailabl e Allergies Active Allergy Reactions Criticality Noted Date Comments Cymbalta Nausea Only,Dizziness 03/16/2009 Severe Nausea Ibuprofen Other 03/16/2009 ulcers Morphine Sulfate 02/15/2003 Vomiting and shaking Nsaids 10/02/2000 She is able to use Aleve Sulfacetamide Sodium RASH 07/18/2006 Unclear Patient Report 06/16/2003 Certain antihistamines make her heart race. Vioxx Other 03/16/2009 Causes ulcers Medications * This document contains information received from the source organization and may not represent a complete record from that organization. acetaminophen (TYLENOL) 500 MG tablet Acetaminophen should be limited to 4000 mg per day. As needed. 3 Active famotidine (PEPCID) 20 MG tabletIndicatio ns:GERD (gastroesophage al reflux disease) Take 2 Tabs by mouth one time a day. 180 Tab 3 09/01/2013 11:45 AM REGISTERED PHARMACIST 3 Active Naproxen Sodium (ALEVE) 220 MG CAPS Take 220 mg by mouth as needed for Pain. Active lidocaine (LIDODERM) 5 % patchIndication s:Hip pain, bilateral Place 1 Patch onto the skin every 24 hours. Remove patch(es) after 12 hours. 30 Patch 5 4 Active Conj Estrogens-Bazed oxifene (DUAVEE) 0.45-20 MG TABS Take by mouth one time a day. 4 Active traZODone (DESYREL) 50 MG tabletIndicatio ns:Insomnia, unspecified Take 1 Tab by mouth at bedtime. 90 Tab 3 02/03/2014 8:41 AM CDT 4 Active metoclopramide (REGLAN) 10 MG tablet Take 1 tablet by mouth every eight hours as needed. 30 tablet 03/04/2014 2:21 PM CDT 4 Active clonazePAM (KLONOPIN) 0.5 MG tabletIndicatio ns:Anxiety,Inso mnia, unspecified take 1 tablet by mouth every other night at bedtime 15 Tab 0 4 Active lansoprazole (PREVACID) 30 MG delayed-release capusle Take 1 Cap by mouth one time a day. Administer before meals. Do not crush. 90 Cap 3 4 Active hydroxychloroqu ine (PLAQUENIL) 200 MG tablet 2 tablets at bedtime. Take with food. 60 Tab 6 4 Active predniSONE (DELTASONE) 10 MG tablet Take 4 tabs on day one, 3 tabs day 2, 2 tabs on day 3 and 1 tab on day 4.Take with food. 10 Tab 0 4 Active Active Problems Problem Noted Date Diagnosed Date Ganglion cyst 12/28/2013 Anxiety 11/02/2013 Insomnia, unspecified 11/02/2013 Overview (03/31/2017): Updated per 03/30/17 IMO import Hip pain, bilateral 11/02/2013 Benzodiazepine contract exists 11/02/2013 Overview (11/02/2013): Contract signed 11/02/13. GERD (gastroesophageal reflux disease) 3 Gluteal tendinitis of left > right buttock 10/27 Fibromyalgia 09/23/2012 Leg cramps 03/16/2009 Family history of rheumatoid arthritis 9 Myalgia and myositis, unspecified 08/02/2008 Overview (10/19/2011): IMO Update 04/09 Resolved Problems Problem Noted Date Diagnosed Date Resolved Date Femoral acetabular impingement - left 10/20/2012 10/27/2012 Encounter for long-term (cur rent) use of other medications - Agreement for Stimulant Medication Treatment - 10/15/2012 10/15/2012 11/02/2013 Overview (10/23/2012): Agreement for Stimulant Medication Treatment Immunizations Name Administration Dates Next Due Tdap (7 years and older) 11/10/2012 Surgical History Surgery Date Site/Laterality Comments REPAIR INCISIONAL HERNIA,REDUCIBLE 07/18/2003 Right. [facility] APPENDECTOMY 04/17/2000 [facility] LIGATE FALLOPIAN TUBE 1992 LAP,DIAGNOSTIC ABDOMEN x 3 TOTAL ABDOM HYSTERECTOMY REMOVAL OF OVARIAN CYST(S) 1995 REPAIR INCISIONAL HERNIA,REDUCIBLE 02/17/2003 With mesh COLONOSCOPY 06/27/08 BREAST LUMPECTOMY Lt. 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 Not on file Not on file Obstetrics History Last Filed Vital Signs Vital Sign Reading Time Taken Comments Blood Pressure 102/60 04/08/2014 2:47 PM CDT Pulse 62 04/08/2014 2:47 PM CDT Temperature 36.5 C (97.7 F) 04/08/2014 2:47 PM CDT Respiratory Rate 16 03/15/2014 8:58 AM CDT [...] 06/07/2023 06/07/2013, 06/27/2008 Colorectal Cancer Screening 06/07/2023 COVID-19 Vaccine (2023-2 5 season) 2024 Influenza Vaccine Seasonal (Standing Order) (#1) 2024 PERTUSSIS (Standing Order) Completed 11/10/2012 HPV Vaccine (Standing Order) Aged Out No longer eligible based on patient's age to complete this topic Procedures Procedure Name Priority Date/Time Associated Diagnosis Comments MAMM DIGITAL SCREENING Routine 06/08/2013 1:48 PM REGISTERED PHARMACIST Other sign and symptom in breast COLONOSCOPY Routine 06/07/2013 from Last 3 Months or Most Recently Relevant to Health Maintenance Results * MAMM DIGITAL SCREENING (06/08/2013 1:48 PM REGISTERED PHARMACIST) Anatomical Region Laterality Modality Breast Bilateral Mammography 06/08/2013 1:33 PM REGISTERED PHARMACIST Impressions 06/15/2013 8:49 AM REGISTERED PHARMACIST Yearly mammography. BI-RADS 2: Benign findings Dictated: MD Johann Vences 16:10 Transcribed by: Rachel Denny 17:30 Narrative 06/15/2013 8:49 AM REGISTERED PHARMACIST This document is currently in Final Status Exam MAMM DIGITAL SCREENING HISTORY: Screen. COMPARISON: Multiple priors. Computer Aided Detection System was utilized prior to interpretation. BREAST DENSITY: The breast tissue is heterogeneously dense. FINDINGS: Postsurgical changes related to benign left breast biopsy. Partial resolution of left breast architectural distortion. Scattered bilateral microcalcifications. Parenchymal pattern is denser on the right than [...] Denny 17:30 Nato Cerrato MD [facility] MAMMOGRAPHY ORDERABLES Final Result * COLONOSCOPY (06/07/2013) Nato Cerrato MD EC PROCEDURES Final Result from Last 3 Months or Most Recently Relevant to Health Maintenance Insurance PHARMACY [facility]
--- OUTSIDE RECORDS SUMMARY | 2024-05-21 07:51 | XMS_ITS | Encounter Summary ---
Author Organization [facility] Address [address] [address] Phone Care Team Providers Care Relief Manager Name Role Phone Cherri Hardy PA-C Primary Care Provider + [phone] Cherri Hardy Primary Care Provider [phone] Elsewhere, Pcp Primary Care Provider Unavailji e Elsewhere, Pcp Primary Care Provider Angela Turner PA-C Primary Care Provider Sonal Wood APRN, CARD FILER Primary Care Provider Encounter Details Date Type Department Care Team (Late st Contact Info) Description 06/16/2003 OFFICE NOTE [facility] [address] [place], [place] [address] Cherri Hardy [address] [id number] Social History Tobacco Use Types Packs/Day Years Used Date Smoking Tobacco: Never Assessed Comments Unknown Sex and Gender Information Value Date Recorded Sex Assigned at Not on file Legal Sex Female 5:19 AM CLAIM PROFESSIONAL Gender Identity Not on file Sexual Orientation Not on file documented as of this encounter Progress Notes * Cherri Hardy - 07/06/2003 3:04 PM [facility] HISTORY AND TREATMENT RECORD SYDNEE GALAN 1965 06/16/2003 [id number] [facility]# Page 1 of 1 Cherri Hardy RN, PA-C [facility] SUBJECTIVE: Sydnee is here with a couple [...] to see Dr. Rinaldi 07/20/2003 at 9:00 a.m./UTS cc: xc: P 3:04 P/mh1/bs(dos)* UDN: [id number] JOB#: [id number] documented in this encounter Plan of Treatment Not on file documented as of this encounter Visit Diagnoses Not on filedocumented in this encounter Care Teams Relief Manager Relationship Specialty Start Date End Date Cherri Hardy PA-C PCP - General 06/16/08 03/15/09 Cherri Hardy [address] [place] [id number] PCP - General 09/10/01 06/15/08 Elsewhere, Pcp PCP - General 01/02/12 05/04/12 Elsewhere, Pcp PCP - General 09/23/12 11/01/12 Angela Orellana, JEN [address] [place] [id number] PCP - General Physician Contract Assistant 11/02/12 02/15/13 Sonal Wood APRN, CARD FILER [address] [place] [id number] PCP - General Family Medicine 02/16/13 05/10/14 documented as of this encounter
--- OUTSIDE RECORDS SUMMARY | 2024-05-21 07:51 | XMS_ITS | Encounter Summary ---
Author Organization [facility] Address [address] [address] Phone Care Team Providers Care Oil Recovery Unit Operator Name Role Phone Sonal Wood APRN, ALEN Primary Care Provider Reason for Referral * Pain Center (Routine) - Exempt Specialty Diagnoses / Procedures Referred By Chey t Referred To Contact Pain Management Diagnoses Chronic pain Tarun Germain MD [address] [place] [phone] Phone: tel: fax: Referral ID Status Reason Start Date Expiration Date Visits Re quested Visits Authorized [id number] Exempt 02/08/2014 1 1 Question Answer Service Requested? Chronic Pain Services Comments Reason for Referral (If referral for Chronic Pain Consult Only - What question do you need answered? 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
== END 2024-05-21 07:50 | disposition home or self-care (01) ==
LOC: INJ CL 07:49
PROVIDERS: PCP Nurse Practitioner Family; Visit Provider Family Medicine
DX: M54.16 Radiculopathy, lumbar region (principal); M51.369 Other intervertebral disc degeneration, lumbar region without mention of lumbar back pain or lower extremity pain
CPT/HCPCS: 64483; J1100; Q9966

== ENCOUNTER 2024-09-29 13:01 | Outpatient (CLI) | payer OTHER, SELFPAY | END 2024-09-29 13:02 | disposition home or self-care (01) | PROVIDERS: PCP Nurse Practitioner Family; Visit Provider Nurse Practitioner Family | DX: E78.5 Hyperlipidemia, unspecified (principal); R53.83 Other fatigue; Z79.1 Long term (current) use of non-steroidal anti-inflammatories (NSAID) | CPT/HCPCS: 80053; 80061 ==

== ENCOUNTER 2024-10-18 16:19 | Outpatient (CLI) | payer OTHER, SELFPAY ==
--- NOTE | 2024-10-18 16:30 | CRLHL7_ITS ---
For Patients: As a result of the Century Cures Act, medical imaging exams and procedure reports are released immediately into your electronic medical record. You may view this report before your referring provider. If you have questions, please contact your health care provider. Indication: Lumbar spinal stenosis with neurogenic claudication Technique: Multiplanar, multisequence, MRI of the lumbar spine, obtained without contrast. Comparison: MRI lumbar spine 12/15/2023 Findings: The lumbar lordosis is preserved. Trace retrolisthesis at L3-4 and L4-5. No acute osseous abnormality. No suspicious bone marrow lesion. Conus medullaris terminates at L1-2. No concerning findings in the paraspinal soft tissues. Mild degenerative changes at the included right SI joint. T12-L1 through L2-L3: No neural foraminal or spinal canal stenosis. L3-L4: Mild diffuse disc bulge, tiny central annular fissure, left foraminal protrusion, mild facet arthropathy. No neural foraminal or spinal canal stenosis. L4-L5: Diffuse disc bulge, mild facet arthropathy. No neural foraminal or spinal canal stenosis. L5-S1: Diffuse disc bulge. No right, mild left neural foraminal narrowing. No spinal canal stenosis. Impression: 1. Mild lower lumbar spondylosis and degenerative spondylolisthesis, not significantly progressed relative to 12/15/2023. 2. Mild left neural foraminal narrowing at L5-S1. No high-grade neural foraminal or spinal canal stenosis. 3. Mild degenerative changes at the right SI joint. Dictated by Clarisa Farley MD @ 10/19/2024 8:39:20 AM (Electronically Signed)
== END 2024-10-18 16:20 | disposition home or self-care (01) ==
LOC: MRI 16:20
PROVIDERS: PCP Nurse Practitioner Family; Visit Provider Orthopaedic Surgery Orthopaedic Surgery of the Spine
DX: M48.062 Spinal stenosis, lumbar region with neurogenic claudication (principal); M47.896 Other spondylosis, lumbar region; M51.26 Other intervertebral disc displacement, lumbar region
CPT/HCPCS: 72148

== ENCOUNTER 2025-01-07 13:24 | Outpatient (CLI) | payer OTHER, SELFPAY ==
--- NOTE | 2025-01-07 13:40 | CRLHL7_ITS ---
For Patients: As a result of the Century Cures Act, medical imaging exams and procedure reports are released immediately into your electronic medical record. You may view this report before your referring provider. If you have questions, please contact your health care provider. INDICATION: BILATERAL SCREENING MAMMOGRAM, ASYMPTOMATIC 59 Y/O FEMALE COMPARISON: 12/23/2023, 08/14/2021, 01/14/2019 TECHNIQUE: Digital mammogram in CC and MLO projections including computer-aided detection (CAD) and tomosynthesis. BREAST COMPOSITION: There are scattered areas of fibroglandular density. FINDINGS: No suspicious findings. ASSESSMENT: BI-RADS 1 Negative RECOMMENDATION: Annual screening mammogram. A lay language report of this examination will be provided to the patient. Dictated by: Blue Roberts MD @ 01/10/2025 12:40:48 (Electronically Signed)
== END 2025-01-07 13:25 | disposition home or self-care (01) ==
LOC: MAMMO 13:25
PROVIDERS: PCP Nurse Practitioner Family; Visit Provider Nurse Practitioner Family
DX: Z12.31 Encounter for screening mammogram for malignant neoplasm of breast (principal)
CPT/HCPCS: 77063; 77067

== ENCOUNTER 2025-01-18 08:28 | Outpatient (CLI) | payer OTHER, SELFPAY ==
[2025-01-18 08:49] LABS: Glucose Fasting Check 113 mg/dl (60-115)
[2025-01-18 12:44] LABS: Glucose 2 Hour 122 mg/dl (70-155)
[2025-01-18 13:13] LABS: Vitamin B12* 359 pg/mL (243-894)
[2025-01-27 03:27] LABS: MMA Vitamin B12 Status 0.13 umol/L (0.00-0.40)
== END 2025-01-18 08:29 | disposition home or self-care (01) ==
LOC: NPINS 08:32
PROVIDERS: PCP Nurse Practitioner Family; Visit Provider Psychiatry & Neurology Neurology
DX: M79.2 Neuralgia and neuritis, unspecified (principal)
CPT/HCPCS: 82607; 82947; 82950; 83921; 84207; 86235; 86334

== ENCOUNTER 2025-02-02 07:47 | Outpatient (CLI) | payer OTHER, SELFPAY ==
[2025-02-02 10:30] LABS: Glucose* 93 mg/dL (60-115)
== END 2025-02-02 07:48 | disposition home or self-care (01) ==
LOC: NPINS 07:48
PROVIDERS: PCP Nurse Practitioner Family; Visit Provider Psychiatry & Neurology Neurology
DX: M79.2 Neuralgia and neuritis, unspecified (principal)
CPT/HCPCS: 82947

== ENCOUNTER 2025-06-09 12:43 | Outpatient (CLI) | payer OTHER, SELFPAY ==
--- NOTE | 2025-06-09 13:00 | CRLHL7_ITS ---
For Patients: As a result of the 21st Century Cures Act, medical imaging exams and procedure reports are released immediately into your electronic medical record. You may view this report before your referring provider. If you have questions, please contact your health care provider. EXAM: MRI OF THE LEFT SHOULDER WITHOUT CONTRAST CLINICAL INDICATION: Left shoulder pain. COMPARISON PLAIN FILMS: None available at time of interpretation. COMPARISON CROSS-SECTIONAL IMAGING STUDIES: None available at time of interpretation. TECHNICAL: Axial, sagittal oblique and coronal oblique T1, PD, PD FS and T2-weighted images. Shoulder surface coil. FINDINGS: OSSEOUS STRUCTURES: Nondisplaced fracture of the greater tuberosity with 2 fracture fragments measures 1.6 cm AP 1.0 cm 0.7 cm CC in aggregate. The fracture involves the insertional footprint of the supraspinatus tendon and anterior the infraspinatus tendon. No displacement. Mild adjacent intramedullary edema. No additional fracture or contusion. No marrow infiltrative process. ROTATOR CUFF TENDONS AND MUSCLES AND DELTOID: Supraspinatus: Mild fraying and fibrillation of the bursal surface. No focal partial-thickness tear. Mild tendinopathy. No muscle atrophy or edema. Infraspinatus: Mild tendinopathy. No tendon tear. No muscle atrophy or edema. Subscapularis: No tendinosis, tendon tearing, muscle atrophy or muscle edema. Teres Minor: No tendinosis, tendon tearing, muscle atrophy or muscle edema. Deltoid: No muscle atrophy or edema. BURSA: Subacromial-subdeltoid: Mild edema in the subacromial subdeltoid bursa. BICEPS TENDON, LONG HEAD: The long head of the biceps tendon is appropriately positioned within the bicipital groove without tendon subluxation or dislocation. The biceps ranjit mechanism is intact. The biceps anchor appears grossly intact. There is no significant tendinosis or tendon tearing. CORACOACROMIAL ARCH: Acromial Morphology: Type 1 acromial morphology. Moderate lateral downsloping of the acromion. No significant subacromial spur. No os acromiale. Acromiohumeral Interval: Normal. Coracohumeral Interval: Normal. ACROMIOCLAVICULAR JOINT REGION: AC Joint: No significant arthrosis, inferior hypertrophy, joint space widening, findings of acute injury or AC joint capsulitis. Ligaments: The coracoclavicular ligaments are intact. GLENOHUMERAL JOINT: Joint space: No effusion or synovitis. Humeral Head Articular Cartilage: No focal cartilage defect or underlying subchondral marrow changes. Glenoid Articular Cartilage: No focal cartilage defect or underlying subchondral marrow changes. Labrum: No labral tear or paralabral cyst. Alignment: Maintained. Capsule: No capsular edema or abnormal capsular thickening. OTHER FINDINGS: There is no abnormality within the suprascapular or spinoglenoid notches nor within the quadrilateral space. No axillary adenopathy or mass. IMPRESSION: 1. Small nondisplaced fracture of the greater tuberosity. 2. Mild fraying and fibrillation of the bursal surface of the supraspinatus tendon with mild tendinopathy. 3. Mild infraspinatus tendinopathy. 4. Mild edema in the subacromial subdeltoid bursa. 5. Moderate lateral downsloping of the acromion. Dictated by Kaleb Perez MD @ 06/10/2025 9:42:06 AM (Electronically Signed)
== END 2025-06-09 12:44 | disposition home or self-care (01) ==
LOC: MRI 12:44
PROVIDERS: PCP Nurse Practitioner Family; Visit Provider Nurse Practitioner Family
DX: S42.256 Nondisplaced fracture of greater tuberosity of unspecified humerus (principal); M75.80 Other shoulder lesions, unspecified shoulder; M67.814 Other specified disorders of tendon, left shoulder; M75.52 Bursitis of left shoulder
CPT/HCPCS: 73221